=== PATIENT | female | born 1945 | race Two or more races ===

== ENCOUNTER → 2020-07-01 | Day surgery (SDC) | payer MEDICARE, MEDICAID ==
--- NOTE | 2020-06-30 23:04 | Pre-Procedure Note/Attestation ---
Pre-Procedure Note/Attestation Complete Prior to Procedure Planned Procedure: left - Removal of cataract and placement of intraocular lens left eye Procedure Narrative: Removal of cataract and placement of intraocular lens left eye Indications for Procedure Pre-Operative Diagnosis: Cataract, combined left eye Attestation I attest that I discussed the nature of the procedure; its benefits; risks and complications; and alternatives (and the risks and benefits of such alternatives), prior to the procedure, with the patient (or the patient's legal surgical device sales representative). I attest that, if there was a reasonable possibility of needing a blood transfu klaus, the patient (or the patient's legal surgical device sales representative) was given the [place] [employer] standardized written summary, pursuant to the [place] Blood Safety Act ([place] Health and Safety Code # 1645, as amended). I attest that I re-evaluated the patient just prior to the surgery and that there has been no change in the patient's H&P, except as documented below: Bernardo Robin MD Jun 30, 2020 23:04
[~2020-07-01] VITALS: Ht 154.9 cm; Wt 53.1 kg
[2020-07-01] VITALS (8 sets, daily range): BP systolic 127–147; BP diastolic 65–77
[~2020-07-01] MED LIST: ADALAT20 MG PO; AMBIEN10 MG PO; AMITRIPTYLINE10 MG PO; ASPIRIN325 MG ORAL; ATORVASTATIN CA40 MG ORAL; Acetylcholine Injection (OR) ONE; BACTRIM 400-801 EACH ORAL; BSS 15ml BTL ONE; BSS 500ml btl ONE; Bupivacaine 0.75% 30ml vial INJ ONE; CYCLOBENZAPRINE10 MG ORAL; DEXILANT60 MG ORAL; ELIQUIS5 MG PO; EPINEPHrine 1mg/1ml Amp ONE; Fluorescein Strips ONE; GLUCOPHAGE500 MG PO; IBUPROFEN600 MG PO; JANUMET 50-1,01 EACH ORAL; LANTUS5 UNITS SUBQ; LOSARTAN POTASS25 MG ORAL; LOTENSIN20 MG PO; LR 1000ml 1,000 ML IVLG SCH; LYRICA75 M1 ORAL; Lidocaine 1% MPF 10mg/ml 5ml ONE; Lidocaine 2% MPF 5ml Vial INJ ONE; Lidocaine 4% Amp 5ml ONE; Maxitrol Opth Oint 3.5gm ONE; OMEPRAZOLE40 MG PO; ONDANSETRON ODT8 MG PO; ONE DAILY FOR1 EACH ORAL; ONE-A-DAY ESSE1 EACH ORAL; PRANDIN0.5 MG ORAL; PROCHLORPERAZINE5 MG PO; Povidone-Iodine 5% opth solution ONE; SIMVASTATIN40 MG PO; Sodium Hyaluronate 10 mg/ml 0.85ml ONE; TESSALON PERLE100 M1 PO; TYLENOL #31 TAB PO; Tetracaine 0.5% Opth 4ml Soln ONE; VICODIN 5-5001 EACH PO; ZOCOR40 MG ORAL; ZOFRAN4 MG/5 ML ORAL; fentaNYL 100 mcg/2 mL IV ONE; fentaNYL 100 mcg/2 mL IV PRN; prednisoLONE acetate 1% Opth Susp 1ml ONE; timoloL maleate 0.5% Op Soln 2.5ml ONE
--- NOTE | 2020-07-01 08:00 | Anethesia Preoperative Eval ---
Anesthesia Pre-op PMH/ROS General Date of Evaluation: Jul 01, 2020 Time of Evaluation: 07:54 Anesthesiologist: Pasha ASA Score: ASA 3 Mallampati Score Class I : Soft palate, uvula, fauces, pillars visible Class II: Soft palate, uvula, fauces visible Class III: Soft palate, base of uvula visible Class IV: Only hard plate visible Mallampati Classification: Class II Surgeon: Sharda Diagnosis: L eye cataract Surgical Procedure: Cataract extraction Anesthesia History: none Family History: no anesthesia problems Allergies: Coded Allergies: No Known Allergies (Unverified , 09/27/12) Medications: see eMAR Patient NPO?: Yes Past Medical History Cardiovascular: Reports: HTN - stable on meds; Denies: CAD, DE, valve dz, arrhythmia, other Pulmonary: Denies: asthma, COPD, FRANDY, other Gastrointestinal/Genitourinary: Reports: GERD; Denies: CRI, ESRD, other Neurologic/Psychiatric: Reports: depression/anxiety, TIA - occasional dizziness; Denies: dementia, CVA, other Endocrine: Reports: hypothyroidism HEENT: Reports: cataract (L), cataract (R); Denies: glaucoma, [place] (L), [place] (R), other Hematology/Immune: Reports: anemia - mild; Denies: DVT, bleeding disorder, other Musculoskeletal/Integumentary: Reports: OA, other - osteoporosis PMH Narrative: as above PSxH Narrative: Radical mastectomy for R breast CA. ORIF for L hip Fx. Anesthesia Pre-op Phys. Exam Physician Exam Last Vital Signs Date Time Temp Pulse Resp B/P (MAP) Pulse Ox O2 Delivery O2 Flow Rate FiO2 07/01/20 07:47 Room Air Constitutional: NAD Neurologic: CN 2-12 intact Cardiovascular: RRR Respiratory: CTA Gastrointestinal: S/NT/ND Airway Exam Mallampati Score: Class II MO: limited Neck: stiff ROM: limited Teeth: missing Dentures: no upper, no lower Anesthesia Pre-op A/P Labs see chart Studies Pre-op Studies: EKG - SR Risk Assessment & Plan Assessment: ASA 3 Plan: MAC Status Change Before Surgery: Corby Ag MD Jul 01, 2020 08:00
[2020-07-01] MEDS: Tropicamide 1% Opth 15ml Soln LEFT EYE SCH ×3 (08:08→08:30)
[2020-07-01] MEDS: Phenylephrine 10% Opth Soln 5ml LEFT EYE SCH ×3 (08:09→08:30)
[2020-07-01] MEDS: Vigamox Opth Soln 3ml LEFT EYE SCH ×3 (08:09→08:30)
[2020-07-01] MEDS: Akten 3.5% 1ml Btl LEFT EYE SCH ×3 (08:10→08:30)
[2020-07-01] MEDS: Tobradex Opth Susp 2.5ml LEFT EYE SCH ×3 (08:10→08:30)
[2020-07-01] MEDS: Cyclopentolate 1% Opth Sol 2ml LEFT EYE SCH ×3 (08:10→08:30)
--- NOTE | 2020-07-01 09:58 | Discharge Instructions ---
Discharge Instructions Discharge Instructions Follow Up Orders Wear shield at all times except to place eye drops Continue preoperative eye drops Followup tomorrow in Dr Robin's office For Congestive Heart Failure Reminder Report to your physician any weight gain of 5 pounds or more in one week. Bernardo Robin MD Jul 01, 2020 09:58
--- NOTE | 2020-07-01 10:01 | Brief Operative Note ---
Immediate Post Operative Note Operative Note Pre-op Diagnosis: Cataract, combined left eye Procedure: Phaco PC IOL left eye Post-op Diagnosis: same as pre-op Surgeon: Junaid Robin MD MS Medical Instructor: none Anesthesiologist: Dr Pak Anesthesia: local, MAC Specimen: none Complications: none Fluids: see chart Implant(s) used?: Yes - KATHLEEN ZCB00 23.5 Bernardo Robin MD Jul 01, 2020 10:01
--- NOTE | 2020-07-01 10:13 | Immediate Post-Op Evaluation ---
Immediate Post-Op Evalulation Immediate Post-Op Evalulation Procedure: L eye cataract extraction with IOL Date of Evaluation: Jul 01, 2020 Time of Evaluation: 10:12 IV Fluids: 200 Blood Products: none Estimated Blood Loss: none Urinary Output: none Blood Pressure Systolic: 132 Blood Pressure Diastolic: 76 Pulse Rate: 58 Respiratory Rate: 18 O2 Sat by Pulse Oximetry: 99 Temperature (Fahrenheit): 97.6 Pain Score (1-10): 1 Nausea: No Vomiting: No Complications none Patient Status: awake, patent, none Hydration Status: adequate Corby Pak MD Jul 01, 2020 10:13
--- NOTE | 2020-07-01 11:11 | 48 Hour Post Anesthesia Eval ---
Post Anesthesia Evaluation Procedure: L eye cataract extraction with IOL Date of Evaluation: Jul 01, 2020 Time of Evaluation: 11:10 Blood Pressure Systolic: 142 0: 64 Pulse Rate: 68 Respiratory Rate: 18 Temperature (Fahrenheit): 97.6 O2 Sat by Pulse Oximetry: 98 Airway: patent Nausea: No Vomiting: No Pain Intensity: 1 Hydration Status: adequate Cardiopulmonary Status: stable Mental Status/LOC: patient returned to baseline Follow-up Care/Observations: n/a Post-Anesthesia Complications: none Follow-up care needed: ready to discharge Corby Pak MD Jul 01, 2020 11:11
--- NOTE | 2020-07-01 12:30 | Operative Note - Dictated ---
DATE OF OPERATION: 07/01/2020 SURGEON: Bernardo Robin MD. AIR CARGO SPECIALIST SUPERVISOR SURGEON: None. ANESTHESIOLOGIST: Corby Pak MD. ANESTHESIA: Local/standby/monitored anesthesia care. PREOPERATIVE DIAGNOSIS: Cataract, combined, left eye. POSTOPERATIVE DIAGNOSES: Cataract, combined, left eye. PROCEDURE: 1. Phacoemulsification cataract, left eye. 2. Placement of posterior chamber intraocular lens, left eye (model, [employer] [id number], power 23.5). SPECIMENS: None. COMPLICATIONS: None. INDICATIONS FOR SURGERY: The patient has had the painless progressive decrease in visual acuity in the left eye secondary to cataract. The patient understands the risks of surgery including infection, bleeding, need for further surgery, loss of vision, no improvement in vision, loss of eye, loss of life, glaucoma, retinal detachment, understands these risks and elected to proceed with surgery. FINDINGS: The patient had a +2 nuclear sclerotic cataract as well as a +2 cortical cataract and +2 anterior subcapsular cataract that was central. OPERATIVE NOTE: After informed consent was obtained, the patient was brought into the operating room and placed in supine position. Cardiac and respiratory monitor monitors were attached. A time-out was performed and all criteria were met and everyone in the room agreed. The left eye was then draped and prepped in sterile manner for ocular surgery. A lid speculum was placed in the eye. A 1% lidocaine preservative-free was injected at the 2' o clock limbus. A conjunctival peritomy was made from approximately 2 o'clock to 3 o'clock and dissected posteriorly. Hemostasis was maintained with bipolar cautery. A 2.8 mm limbal incision was made and centered at approximately 2:30 and dissected anteriorly. Paracentesis was made at approximately 5 'o clock and Shugarcaine was injected into the anterior chamber followed by Healon. The anterior chamber was then entered using a 2.8 mm keratome through the limbal incision. An anterior capsulorrhexis was then performed. Hydrodissection and hydrodelineation of the lens then performed. The lens was then phacoemulsified using divide and conquer four-quadrant technique. Residual cortical material was then aspirated. Healon was injected into the anterior chamber and capsular bag. The lens was taken from its package, placed into the cartridge and the tip of the cartridge was placed through the limbal incision and the lens was injected into the capsular bag and centered nicely with a [place] hook. Healon was then aspirated from the anterior chamber and capsular bag. The lens was positioned along the 3 'o clock to 9 'o clock limbus. The wounds were hydrated closed. One 10-0 nylon interrupted suture was then placed through the limbal incision and the knot was rotated and buried. All the wounds were checked and found to be watertight. The lid speculum was removed from the eye and the lens was again visualized and noted to be centered along the 9 o' clock to 3 o ' clock axis with the optic and both haptics in the capsular bag. Drapes were removed from the eye. Moxifloxacin was applied to the surface of the eye followed by Pred Forte drops and then Maxitrol ointment and shield. The patient tolerated the procedure well and left the operating room awake, alert, and in stable condition. Bernardo Robin M.D. DR: [place] JOB#: [id number] CC:
== END | disposition home or self-care (01) ==
LOC: SUR 06:52
DX: H25.12 Age-related nuclear cataract, left eye (principal); H25.012 Cortical age-related cataract, left eye; I10 Essential (primary) hypertension; K21.9 Gastro-esophageal reflux disease without esophagitis; F32.9 Major depressive disorder, single episode, unspecified; F41.9 Anxiety disorder, unspecified; Z86.73 Personal history of transient ischemic attack (TIA), and cerebral infarction without residual deficits; M19.90 Unspecified osteoarthritis, unspecified site; M81.0 Age-related osteoporosis without current pathological fracture; Z90.11 Acquired absence of right breast and nipple; E03.9 Hypothyroidism, unspecified
CPT/HCPCS: 66984; 82962; 94003; J0171; J1100; J2704; J3010; U0002; V2632; 94150